=== PATIENT | male | born 1985 | race Caucasian/White ===

== ENCOUNTER 2023-05-19 11:09 | Inpatient (IN) | payer OTHER, SELFPAY ==
[2023-05-19 11:23] VITALS: BP 156/112; PULSE 70; RESP 16; TEMP 36.7; O2SAT 98
[2023-05-19] MEDS: nicotine 21 mg Patch 1 PATCH TRANSDERMA (12:53)
[2023-05-19 14:00] VITALS: BP 156/112; PULSE 70; RESP 16; TEMP 37; O2SAT 100
--- NOTE | 2023-05-19 15:46 | PC.NURSE ---
Patient states he went to [facility] in [place], [place] because he had taken 10 capsules of vistaril in an attempt to OD. He states he has attempted this more than once and has been hospitalized in both [place] and [place] this year. Patient states he believes this was triggered by the loss of his dad 6 months ago and he feels a lot of pressure on him since he lives next to his mother and feels he needs to take care of her now. Patient began crying when talking about his siblings telling him he was crazy because he had been in neuropsych units before and he was also afraid his mother wouldn't want to talk to him. However, his mother did call during the assessment and asked to talk to him which made him feel much better. He endorses a poor appetite due to depression. Denies avh and si. Endorses alcohol, marijuana, and tobacco use.
[2023-05-19 19:46] VITALS: BP 145/95; PULSE 73; RESP 18; TEMP 36.9; O2SAT 97
[2023-05-20 06:00] VITALS: BP 150/97; PULSE 68; RESP 16; TEMP 36.8; O2SAT 98
--- NOTE | 2023-05-20 06:18 | W.PM.NPUH&PS ---
Providers/Chief Complaint Admitting Physician: Jacob Palafox MD Chief Complaint: OD HPI NPU History of Present Illness Patel Shelton is a 37 year old male who presented to an outside hospital reporting struggles with depression, anxiety and suicidality. He was transferred to [facility] and was admitted to the neuropsychiatric unit for definitive treatment of those issues. The patient presents today reporting that he was on venlafaxine but stopped it. He reports that he is here secondary to taking a bunch of pills. He reports that he has had four previous psychiatric hospitalizations, the last time was five months ago. He reports that he doesn?t currently have outpatient services. He reports that he also had a trial of Zoloft, and he has also been on Trazodone. He endorses smoking less than a pack of cigarettes a day. He endorses some alcohol use, but not as much as he used to, because of taking blood thinners. He endorses daily marijuana use. He denies cocaine, methamphetamine, opiates or any other illicit drug use currently. He endorses drug rehabilitation. He endorses DUI. He denies other drug related charges. He reports that he has had symptoms of depression which increased when his dad six months ago. He reports that before that, starting a decade ago, he would have feelings of worthlessness, and depressed mood, low energy, and lack of enjoyment. He endorses passive wish recently but denies suicidal thoughts. He denies paranoia or auditory or visual hallucinations. He endorses anxiety with both cognitive and physical symptoms. He denies nightmares or flashbacks. He denies obsessive compulsive symptoms. He reports that the Effexor was effective before, but once his dose was increased and he was taking it twice a day, that is when he had side effects. We discussed the risks, benefits, and alternatives of restarting the Effexor, and he understood and agreed to proceed as is documented in this note. PSYCHIATRIC HISTORY: As above. SUBSTANCE ABUSE HISTORY: As above. FAMILY HISTORY: The patient endorses mental health issues on dad?s side of the family. He denies addiction issues or suicide attempts or completions in his family. DEVELOPMENTAL HISTORY: The patient denies any issues with his mother?s or delivery of him, except that he was a little premature because he was a twin, but they were healthy at . The patient reports learning to walk and talk and meeting developmental milestones on time. The patient denies speech therapy, learning support, emotional support, or special education classes. He denies IEP or 504 plans. PSYCHOSOCIAL HISTORY: The patient reports that his mother and father were together at his and remained together. He reports he and his twin had one other sibling, a sister from that same union. He denies other children. He describes his childhood as alright, although he reports that he knew at an early age that he was martinez and his family does not believe in that, so that was tough, and he got picked on as a kid. He denies emotional, physical, or sexual abuse. He denies placement outside of the home. He reports that that ten years ago he went through a difficult breakup. He reports that he graduated from high school. He reports that he has his [employer] license. He endorses being homosexual, with his longest relationship being being fourteen years. He has not been or had children. He denies service. He endorses being Mu-Ism. He reports that his longest job was in the [employer] business for twenty-one years. He reports that he currently lives in his own house [place], [place] [address] [place]. LEGAL HISTORY: The patient [facility]; two other times he was booked and released. MEDICAL HISTORY: The patient denies any known allergies to medications, but he did get hives with Eliquis. He reports that he had a blood clot. He has high blood pressure which went down after taking blood thinners and they discontinued his blood pressure medication. Meds NPU Home Medications Medication Instructions Recorded Confirmed Last Taken Type No Known Home Medications 05/19/23 05/19/23 Unknown History Allergies Allergy/AdvReac Type Severity Reaction Status Date / Time apixaban [From Eliquis] Allergy ALGY-Hives Verified 05/19/23 11:31 Mental Status Exam MSE Comments: This is a slender, short, white male, in hospital scrubs, with adequate grooming and eye contact. With poor dentition. No abnormal movements, except for mild psychomotor retardation. Cooperative with exam in mild distress. Speech was normal rate and volume. Mood described as good; affect congruent. Thought process, organized. Thought content: patient denied any suicidal or homicidal ideation, there were no delusions reported or noted, patient denied any auditory or visual hallucinations. Attention, concentration, and memory appeared intact, but none were formally tested. Alert and oriented times three. Insight and judgment appear fair. Impulse control is limited. Vitals/I&O/Wt Last Vital Signs Temp 98.4 F 05/19/23 19:46 Pulse 73 05/19/23 19:46 Resp 18 05/19/23 19:46 BP 145/95 05/19/23 19:46 Pulse Ox 97 05/19/23 19:46 O2 Del Method Room Air 05/19/23 19:46 Weight last 48 hrs Weight 54.431 kg A&P Assessment and plan (1) Major depressive disorder, recurrent: (2) SARITHA (generalized anxiety disorder): (3) Suicide attempt: (4) Alcohol use disorder, severe, in sustained remission: Plan This is a 37-year-old, white male, with some genetic loading for mental health issues, with a history of depression and anxiety, who presents after an overdose, with a willingness to adjust his medications. 1. Start Effexor at 37.5 mg, with a plan to increase in a couple days. 2. Encourage individual, group, and milieu therapy. 3. Continue q-15-minute checks for safety. 4. Recommend sober living treatment at the highest level of care to which the patient is willing to commit. Involuntary Hold Information 96 Hour Hold: 96 Hour Involuntary Admission: No Attestations NPU Medical Necessity Statement*: Inpatient hospitalization is medically necessary and the clinically appropriate intervention, at this time. We will monitor medications and make changes as indicated. Patient will be in the hospital for over two midnights. Likely length of stay is three to five days. Coding Level of Care Code Acute Code for g Fwd Diagnoses Major depressive disorder, recurrent F33.9 ASRITHA (generalized anxiety disorder) F41.1 Suicide attempt T14.91XA Alcohol use disorder, severe, in sustained remission F10.21
[2023-05-20] MEDS: potassium chloride ER 20 mEq Tablet PO (08:17)
[2023-05-20] MEDS: pantoprazole DR 40 mg Tablet PO (08:17)
[2023-05-20] MEDS: rivaroxaban 10 mg Tablet 20 MG PO (08:17)
[2023-05-20] MEDS: venlafaxine ER (24HR) 37.5 mg Capsule PO (10:55)
[2023-05-20] MEDS: nicotine 21 mg Patch 1 PATCH TRANSDERMA (11:42)
[2023-05-20 13:39] VITALS: BP 151/95; PULSE 64; RESP 14; TEMP 36.8; O2SAT 98
[2023-05-20 19:48] VITALS: BP 153/96; PULSE 83; RESP 16; TEMP 36.8; O2SAT 96
[2023-05-20] MEDS: trazodone 100 mg Tablet PO (20:11)
[2023-05-21 06:00] VITALS: BP 147/96; PULSE 64; RESP 16; TEMP 36.6; O2SAT 98
[2023-05-21] MEDS: potassium chloride ER 20 mEq Tablet PO (08:08)
[2023-05-21] MEDS: rivaroxaban 10 mg Tablet 20 MG PO (08:08)
[2023-05-21] MEDS: venlafaxine ER (24HR) 37.5 mg Capsule PO (08:08)
[2023-05-21] MEDS: pantoprazole DR 40 mg Tablet PO (08:08)
[2023-05-21] MEDS: nicotine 21 mg Patch 1 PATCH TRANSDERMA (12:25)
[2023-05-21 14:00] VITALS: BP 135/87; PULSE 61; RESP 14; TEMP 36.6; O2SAT 97
--- NOTE | 2023-05-21 17:49 | W.PM.NPUPNS ---
Subjective NPU Subjective: 37-year-old white male admitted after overdose with suicidal ideation. He had reported having a previous problem with higher doses of Effexor but stated that he continued to feel depressed. He had reported that he had felt sad for several months. He reported significant consumption of alcohol but states that he has been drinking but not as much as previously as he had reported being able to consume a gallon of alcohol without any significant consequences. He had reported increased anxiety and depression and reported wanting to continue Effexor as he had discontinued that medication abruptly approximately 1 week ago with some withdrawal symptoms noted per patient. Mental Status Exam MSE Comments: This is a slender, short, white male, in hospital scrubs, with adequate grooming and eye contact and with poor dentition. No abnormal movements, except for mild psychomotor retardation. He was cooperative with exam in mild distress. Speech was normal rate and volume. Mood described as down; affect was restricted. Thought process, organized. Thought content: patient denied any suicidal or homicidal ideation, there were no delusions reported or noted, patient denied any auditory or visual hallucinations. Attention, concentration, and memory appeared intact, but none were formally tested. Alert and oriented times three. Insight and judgment appear fair. Impulse control is limited. Vitals/I&O/Wt Last Vital Signs Temp 98 F 05/21/23 14:00 Pulse 61 05/21/23 14:00 Resp 14 05/21/23 14:00 BP 135/87 05/21/23 14:00 Pulse Ox 97 05/21/23 14:00 O2 Del Method Room Air 05/21/23 06:00 Weight last 48 hrs Weight 63.106 kg A&P Assessment and plan (1) Major depressive disorder, recurrent: (2) SARITHA (generalized anxiety disorder): (3) Suicide attempt: (4) Alcohol use disorder, severe, in sustained remission: Plan This is a 37-year-old, white male, with some genetic loading for mental health issues, with a history of depression and anxiety, who presents after an overdose, with a willingness to adjust his medications. 1. Increase Effexor XR 75mg in am. Trazodone prn for insomnia. 2. Encourage individual, group, and milieu therapy. 3. Continue q-15-minute checks for safety. 4. Recommend sober living treatment at the highest level of care to which the patient is willing to commit. Involuntary Hold Information 96 Hour Hold: 96 Hour Involuntary Admission: No Attestations NPU Medical Necessity Statement*: Inpatient hospitalization is medically necessary and the clinically appropriate intervention, at this time. We will monitor medications and make changes as indicated. The patient's likely length of stay is three to five days. Coding Level of Care Code Acute Code for Chg Fwd Diagnoses Major depressive disorder, recurrent F33.9 SARITHA (generalized anxiety disorder) F41.1 Suicide attempt T14.91XA Alcohol use disorder, severe, in sustained remission F10.21
[2023-05-21 19:57] VITALS: BP 153/93; PULSE 70; RESP 18; TEMP 36.7; O2SAT 100
[2023-05-21] MEDS: trazodone 100 mg Tablet PO (20:17)
[2023-05-22 06:00] VITALS: BP 127/87; PULSE 85; RESP 18; TEMP 36.4; O2SAT 98
[2023-05-22] MEDS: rivaroxaban 10 mg Tablet 20 MG PO (08:08)
[2023-05-22] MEDS: venlafaxine ER (24HR) 37.5 mg Capsule PO (08:08)
[2023-05-22] MEDS: potassium chloride ER 20 mEq Tablet PO (08:08)
[2023-05-22] MEDS: pantoprazole DR 40 mg Tablet PO (08:08)
[2023-05-22] MEDS: nicotine 21 mg Patch 1 PATCH TRANSDERMA (10:15)
[2023-05-22 14:00] VITALS: BP 126/85; PULSE 77; RESP 16; TEMP 36.8; O2SAT 98
--- NOTE | 2023-05-22 15:46 | P.NPUDS_ITS ---
Diagnoses at Discharge Discharge Diagnosis (1) Major depressive disorder, recurrent: Status: Acute (2) SARITHA (generalized anxiety disorder): Status: Acute (3) Suicide attempt: Status: Acute (4) Alcohol use disorder, severe, in sustained remission: Status: Acute Reason for Visit Reason for Visit: OD Brief History: History of Present Illness Patel Shelton is a 37 year old male who presented to an outside hospital reporting struggles with depression, anxiety and suicidality.? He was transferred to [facility] and was admitted to the neuropsychiatric unit for definitive treatment of those issues. The patient presents today reporting that he was on venlafaxine but stopped it. He reports that he is here secondary to taking a bunch of pills. He reports that he has had four previous psychiatric hospitalizations, the last time was five months ago. He reports that he doesn?t currently have outpatient services. He reports that he also had a trial of Zoloft, and he has also been on Trazodone. He endorses smoking less than a pack of cigarettes a day. He endorses some alcohol use, but not as much as he used to, because of taking blood thinners. He endorses daily marijuana use. He denies cocaine, methamphetamine, opiates or any other illicit drug use currently. He endorses drug rehabilitation. He endorses DUI. He denies other drug related charges. He reports that he has had symptoms of depression which increased when his dad six months ago. He reports that before that, starting a decade ago, he would have feelings of worthlessness, and depressed mood, low energy, and lack of enjoyment. He endorses passive wish recently but denies suicidal thoughts. He denies paranoia or auditory or visual hallucinations. He endorses anxiety with both cognitive and physical symptoms. He denies nightmares or flashbacks. He denies obsessive compulsive symptoms. He reports that the Effexor was effective before, but once his dose was increased and he was taking it twice a day, that is when he had side effects. We discussed the risks, benefits, and alternatives of restarting the Effexor, and he understood and agreed to proceed as is documented in this note. PSYCHIATRIC HISTORY: As above. SUBSTANCE ABUSE HISTORY: As above.? FAMILY HISTORY: The patient endorses mental health issues on dad?s side of the family. He denies addiction issues or suicide attempts or completions in his family. DEVELOPMENTAL HISTORY: The patient denies any issues with his mother?s or delivery of him, except that he was a little premature because he was a twin, but they were healthy at . The patient reports learning to walk and talk and meeting developmental milestones on time. The patient denies speech therapy, learning support, emotional support, or special education classes. He denies IEP or 504 plans. PSYCHOSOCIAL HISTORY: The patient reports that his mother and father were together at his and remained together. He reports he and his twin had one other sibling, a sister from that same union. He denies other children. He describes his childhood as alright, although he reports that he knew at an early age that he was martinez and his family does not believe in that, so that was tough, and he got picked on as a kid. He denies emotional, physical, or sexual abuse. He denies placement outside of the home. He reports that that ten years ago he went through a difficult breakup. He reports that he graduated from high school. He reports that he has his [employer] license. He endorses being homosexual, with his longest relationship being being fourteen years. He has not been or had children. He denies service. He endorses being Pentecostal. 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 He reports that he currently lives in his own house [place] his [place], [place] [address] LEGAL HISTORY: The patient reports being to senior living once for two days; two other times he was booked and released. MEDICAL HISTORY: The patient denies any known allergies to medications, but he did get hives with Eliquis. He reports that he had a blood clot. He has high blood pressure which went down after taking blood thinners and they discontinued his blood pressure medication. Hospital Course Hospital Course During the hospitalization, the patient had routine laboratory studies which were within normal limits except for a few outliers.? Additionally, there was a general medical evaluation which was also within normal limits and revealed no new acute processes.? At the time of discharge, lethality was denied and psychosis was resolving.? Mood and anxiety were well managed.? The patient endorsed a plan to avoid all drugs of abuse and follow up with the aftercare recommendations of the treatment team.? The patient was evaluated and deemed to be absent credible lethality and had achieved the maximum benefit from an inpatient hospitalization, and so was discharged.? The patient was restarted on Effexor but switched to Effexor XR 150mg in am at discharge with trazodone to be given as needed to target insomnia. Involuntary Hold Information 96 Hour Hold: 96 Hour Involuntary Admission: No Mental Status Exam MSE Comments: This is a slender, short, white male, in hospital scrubs, with adequate grooming and eye contact and with poor dentition. No abnormal movements, except for mild psychomotor retardation. He was cooperative with exam in no acute distress. Speech was normal rate and volume. Mood described as better; affect was brighter. Thought process, organized. Thought content: patient denied any suicidal or homicidal ideation, there were no delusions reported or noted, patient denied any auditory or visual hallucinations. Attention, concentration, and memory appeared intact, but none were formally tested. Alert and oriented times three. Insight and judgment appear fair. Impulse control is improved. Discharge Data Vitals: Last Vital Signs Temp 98.3 F 05/22/23 14:00 Pulse 77 05/22/23 14:00 Resp 16 05/22/23 14:00 BP 126/85 05/22/23 14:00 Pulse Ox 98 05/22/23 14:00 O2 Del Method Room Air 05/22/23 14:00 Discharge Plan Discharge Patient Disposition: Home Condition: Stable Prescriptions: New venlafaxine 150 mg tablet extended release 24hr 150 mg PO DAILY 30 Days Qty: 30 1RF trazodone 100 mg Tablet 100 mg PO BEDTIME PRN (Reason: insomnia) 30 Days Qty: 30 1RF pantoprazole 40 mg Tablet,Delayed Release (Dr/Ec) 40 mg PO DAILY Qty: 30 1RF lisinopril 10 mg tablet 10 mg PO DAILY 30 Days Qty: 30 1RF Xarelto 10 mg Tablet 20 mg PO DAILY Qty: 60 1RF Discharge Orders: Discharge Order (Routine); Ordered 05/22/23 Ordered By: Gabriel Long Referrals: Troy Allen, MSN, TECHNICAL TRAINING COORDINATOR-[facility] [Other] - 05/31/23 3:15 pm (Follow up. ) [facility] [Other] - 06/07/23 10:00 am (Intake appointment) [facility] -Dr. Dailey [Other] - 06/20/23 11:00 am (Initial appointent in [place] and after in [place] or [facility]. ) Discharge Diet: Advance as tolerated Discharge Activity: Resume usual activity Patient Instructions: Alcohol Abuse, Generalized Anxiety Disorder, Depression, Help Prevent Suicide (GEN), Opioid Safety Discharge Attestations NPU Time Spent in Discharge Care*: less than 30 min Coding Level of Care Code Acute Chg FW DC note Diagnoses Major depressive disorder, recurrent F33.9 SARITHA (generalized anxiety disorder) F41.1 Suicide attempt T14.91XA Alcohol use disorder, severe, in sustained remission F10.21
[2023-05-22 16:00] VITALS: BP 126/85; PULSE 77; RESP 16; TEMP 36.8; O2SAT 98
== END 2023-05-22 16:17 | disposition home or self-care (01) | DRG 885 ==
PROVIDERS: Admitting Provider Psychiatry & Neurology Psychiatry; Visit Provider Psychiatry & Neurology Psychiatry
DX: F33.9 Major depressive disorder, recurrent, unspecified (principal); R45.851 Suicidal ideations; F41.1 Generalized anxiety disorder; F17.210 Nicotine dependence, cigarettes, uncomplicated; F10.21 Alcohol dependence, in remission; F12.90 Cannabis use, unspecified, uncomplicated; Z81.8 Family history of other mental and behavioral disorders
CPT/HCPCS: 97165